=== PATIENT | female | born 1965 | race Caucasian/White ===

== ENCOUNTER 2018-09-05 16:22 | Outpatient (CLI) | payer OTHER ==
--- NOTE | 2018-09-05 18:01 | RAD ---
THREE VIEWS OF THE LUMBOSACRAL SPINE 09/05/18 COMPARISON: None. HISTORY: Low back pain for two weeks. FINDINGS: Three views of the lumbosacral spine shows normal height and alignment of vertebral bodies without fr acture or subluxation. The intervertebral discs are narrowed and moderate osteophytes are seen in the lower lumbar spine. Vascular calcifications are seen in the aorta. IMPRESSION: Degenerative changes in the lumbar spine without acute osseous abnormality. POS: IRON
== END 2018-09-05 16:23 | disposition home or self-care (01) ==
LOC: MADRAD 16:22
PROVIDERS: ATTEND Physician Assistant
DX: M54.40 Lumbago with sciatica, unspecified side (principal); M47.816 Spondylosis without myelopathy or radiculopathy, lumbar region
CPT/HCPCS: 72100

== ENCOUNTER 2018-09-09 11:51 | Emergency (ER) | payer SELFPAY ==
[2018-09-09] MEDS ORDERED: HYDROcodone/Acetaminophen 10/325 mg Tablet ONE (12:36)
[2018-09-09] MEDS ORDERED: Dexamethasone 10 MG/ML VIAL ONE (12:37)
[2018-09-09] MEDS ORDERED: Ketorolac Tromethamine 30 MG/ML VIAL ONE (12:37)
== END 2018-09-09 13:02 | disposition home or self-care (01) ==
LOC: MADERS 11:51
DX: M54.16 Radiculopathy, lumbar region (principal); M54.42 Lumbago with sciatica, left side; I10 Essential (primary) hypertension; I25.2 Old myocardial infarction; F17.210 Nicotine dependence, cigarettes, uncomplicated; Z79.899 Other long term (current) drug therapy
CPT/HCPCS: 96372; J1100; J1885